=== PATIENT | female | born 2000 | race Two or more races ===

== ENCOUNTER 2025-02-08 23:43 | Emergency (ER) | payer SELFPAY ==
[~2025-02-08] VITALS: Ht 162.6 cm; Wt 59.0 kg
[2025-02-09 01:49] LABS: PLATELET COUNT (AUTO) 263 K/uL (150-450); RED BLOOD CELL COUNT(AUTO) 3.76 MIL/uL (4.0-5.2); RED CELL DISTRIBUTION WIDTH 13.5 % (11.5-15.0); WHITE BLOOD COUNT (AUTO) 11.2 K/uL (4.3-11.0)
[2025-02-09] MEDS ORDERED: PHENOBARBITAL SODIUM 130 MG/ML VIAL ONE (01:52)
[2025-02-09] MEDS: NS 0.9% IV ONE (01:58)
[2025-02-09] MEDS: IV NS 0.9% 1,000 ML BAG IV ONE (01:58)
[2025-02-09] MEDS: PHENOBARBITAL SODIUM IV ONE (01:58)
[2025-02-09 01:59] LABS: CALCIUM, SERUM 9.0 mg/dL (8.5-10.1); CREATININE 0.7 mg/dL (0.6-1.3); SODIUM SERUM 138 mmol/L (136-145); UREA NITROGEN, BLOOD 8 mg/dL (7-18)
[2025-02-09] MEDS ORDERED: THIAMINE HCL 100 MG TABLET ONE ×2 (02:02→02:03)
[2025-02-09] MEDS: THIAMINE HCL 100 MG TABLET PO ONE ×2 (02:04→02:17)
[2025-02-09 02:05] LABS: ASPARTATE AMINOTRANSFERASE 20 U/L (15-37); TOTAL PROTEIN, SERUM 7.5 g/dL (6.4-8.2)
[2025-02-09 02:08] LABS: ALCOHOL, BLOOD < 3 mg/dL (0-10)
[2025-02-09] MEDS ORDERED: CHLO25CA22 PO (03:39)
[2025-02-09 03:55] VITALS: BP 116/65; TEMP 98; O2SAT 98
== END 2025-02-09 03:56 | disposition home or self-care (01) ==
LOC: ER 23:43
DX: F10.239 Alcohol dependence with withdrawal, unspecified (principal); R56.9 Unspecified convulsions; F41.9 Anxiety disorder, unspecified; Y90.9 Presence of alcohol in blood, level not specified
CPT/HCPCS: 99284; 96365; 85025; 80048; 80076; 36415; 80320; J2560 ×2; J7030 ×3; G0480

== ENCOUNTER 2025-02-10 18:02 | Inpatient (IN) | payer BC ==
[~2025-02-10] VITALS: Ht 165.1 cm; Wt 56.9 kg
[~2025-02-10 18:02] MED LIST: CHLO25CA22 PO
[2025-02-10 18:40] LABS: APPEARANCE,URINE CLEAR (CLEAR); BLOOD, URINE NEGATIVE Ery/uL (NEGATIVE); LEUKOCYTE ESTERASE ,URINE NEGATIVE (NEGATIVE); NITRITE, URINE NEGATIVE (NEGATIVE); UGLUCOSE NEGATIVE (NEGATIVE)
[2025-02-10 18:43] LABS: PLATELET COUNT (AUTO) 260 K/uL (150-450); RED BLOOD CELL COUNT(AUTO) 3.64 MIL/uL (4.0-5.2); RED CELL DISTRIBUTION WIDTH 13.7 % (11.5-15.0); WHITE BLOOD COUNT (AUTO) 11.4 K/uL (4.3-11.0)
[2025-02-10] MEDS: IV D5 LR 1,000 ML IV ONE (19:04)
[2025-02-10 19:11] LABS: AMPHETAMINE, URINE NEGATIVE (NEGATIVE); BARBITURATE, URINE POSITIVE (NEGATIVE); BENZODIAZEPINE, URINE NEGATIVE (NEGATIVE); CANNABINOID, URINE POSITIVE (NEGATIVE); COCCAINE, URINE NEGATIVE (NEGATIVE); OPIATE, URINE NEGATIVE (NEGATIVE)
[2025-02-10 19:50] LABS: CREATININE 1.2 mg/dL (0.6-1.3)
[2025-02-10 20:27] LABS: SODIUM SERUM 146 mmol/L (136-145)
[2025-02-10 20:28] LABS: CALCIUM, SERUM 8.6 mg/dL (8.5-10.1)
[2025-02-10 20:29] LABS: UREA NITROGEN, BLOOD 5 mg/dL (7-18)
[2025-02-10 20:31] LABS: PHOSPHORUS 2.0 mg/dL (2.5-4.9)
[2025-02-10 20:32] LABS: ASPARTATE AMINOTRANSFERASE 16 U/L (15-37); TOTAL PROTEIN, SERUM 7.4 g/dL (6.4-8.2); VALPROIC ACID 1 ug/mL (50-100)
[2025-02-10 20:39] LABS: ALCOHOL, BLOOD 193 mg/dL (0-10)
[2025-02-10 20:45] LABS: CREATINE KINASE, TOTAL 71 U/L (26-192)
[2025-02-10] MEDS ORDERED: ONDANSETRON HCL/PF 4 MG/2 ML VIAL IVP PRN (22:00)
[2025-02-10] MEDS ORDERED: ACETAMINOPHEN 325 MG TABLET PO PRN (22:00)
[2025-02-10] MEDS ORDERED: MAGNESIUM HYDROXIDE 30 ML UDC PO PRN (22:00)
[2025-02-10] MEDS ORDERED: MAG HYDROX/AL HYDROX/SIMETH 30 ML UDC PO PRN (22:00)
[2025-02-10] MEDS: POTASSIUM CL. PREMIX PERIPHER. 50 ML IV SCH (22:55)
[2025-02-11] MEDS ORDERED: POTASSIUM CL. PREMIX PERIPHER. 50 ML ONE ×3 (00:10→01:56)
[2025-02-11 01:05] VITALS: O2SAT 97
[2025-02-11 02:07] VITALS: BP 117/90; TEMP 97.7; O2SAT 100
[2025-02-11] MEDS: IV NS 0.9% 1,000 ML IV PRN (03:55)
[2025-02-11 04:00] VITALS: BP 127/79; TEMP 98.1; O2SAT 98
[2025-02-11 07:02] LABS: PREGNANCY TEST URINE QUAL NEGATIVE (NEGATIVE)
[2025-02-11 09:01] VITALS: BP 117/88; TEMP 98.1; O2SAT 100
[2025-02-11] MEDS ORDERED: MIRT-90 PO (09:58)
[2025-02-11] MEDS ORDERED: GABA600T12 PO (09:58)
[2025-02-11] MEDS ORDERED: FLUO20CA36 PO (09:58)
[2025-02-11] MEDS ORDERED: QUET300T2 PO (09:58)
== END 2025-02-11 12:22 | disposition home or self-care (01) | DRG 917 ==
LOC: ER 18:22 → TELE 02-11 01:47
PROVIDERS: ADMIT Nurse Practitioner Acute Care; ATTEND Nurse Practitioner Acute Care
DX: T43.592A Poisoning by other antipsychotics and neuroleptics, intentional self-harm, initial encounter (principal); G92.8 Other toxic encephalopathy; F32.9 Major depressive disorder, single episode, unspecified; F10.129 Alcohol abuse with intoxication, unspecified; E87.6 Hypokalemia; T42.6X2A Poisoning by other antiepileptic and sedative-hypnotic drugs, intentional self-harm, initial encounter; T51.92XA Toxic effect of unspecified alcohol, intentional self-harm, initial encounter; Y92.89 Other specified places as the place of occurrence of the external cause; R94.31 Abnormal electrocardiogram [ECG] [EKG]; Y90.6 Blood alcohol level of 120-199 mg/100 ml
CPT/HCPCS: 36415; 70450-TC; 80048-TC; 80076-TC; 80164-TC; 80178-TC; 82550-TC; 82962-TC; 83735-TC; 84100-TC; 84443-TC; 84703-TC; 85025-TC; 98960; A4223; G0378; G0480; J3480; J3490; J7030; J7040